=== PATIENT | female | born 1965 | race Caucasian/White ===

== ENCOUNTER → 2021-03-01 | Outpatient (CLI) | payer BC ==
--- NOTE | 2021-03-06 08:58 | RESP ---
DATE OF SERVICE: 03/01/2021 PULMONARY FUNCTION TEST The patient's FVC was 3.49, which is 103% predicted. FEV1 is 2.6, which is 101% predicted. The FEV1/FVC ratio was normal. No bronchodilators given. Lung volumes showed increased total lung capacity and increased residual volume. Normal diffusion capacity. IMPRESSION: 1. No evidence of any obstructive airway disease. 2. No bronchodilators given. 3. Lung volumes consistent with hyperinflation. 4. Normal diffusion capacity. JEAN/CATA DR: Liz TID: [id number] CC: ISHAN WILLIS MD
== END ==
LOC: PF 11:08
PROVIDERS: ATTEND Internal Medicine Pulmonary Disease
DX: R06.02 Shortness of breath (principal); R05 Cough
CPT/HCPCS: 94010; 94726; 94729